=== PATIENT | female | born 1985 | race Two or more races ===

== ENCOUNTER → 2024-01-11 14:23 | Outpatient (REF) | payer BC, SELFPAY ==
[2024-01-11 15:23] LABS: Urine Albumin Negative (Neg - Trace); Urine Bilirubin Negative (Negative); Urine Character Clear (Clear); Urine Color Yellow; Urine Glucose Negative (Negative); Urine Ketone 1+ (Negative); Urine Leukocyte Negative (Negative); Urine Nitrite Negative (Negative); Urine Occult Blood 1+ (Negative); Urine Specific Gravity 1.025 (<1.030); Urine Urobilinogen Negative (Neg - 1+)
[2024-01-11 15:24] LABS: % Basophils 0.5 % (0-2); % Immature Granulocytes 0.3 % (0-0.5); % Lymphocytes 20.2 % (20.5-51.1); % Monocytes 11.2 % (1.7-9.3); % Neutrophils 66.8 % (42.2-75.2); Absolute Eosinophils 0.1 10^3/uL (0-0.7); Absolute Lymphocytes 1.8 10^3/uL (1.2-3.4); Absolute Neutrophils 5.9 10^3/uL (1.4-6.5); Hemoglobin 12.1 g/dL (13.0-18.0); Mean Corp Hgb Conc. 34.6 g/dL (33.0-37.0); Mean Corpuscular Volume 86.6 fL (80.0-94.0); Mean Platelet Volume 9.9 fL (7.4-10.4); Nucleated Red Blood Cells % 0 % (-); Platelet Count 300 10^3/uL (130-400); Red Blood Cell Count 4.04 10^6/uL (4.70-6.10); Red Cell Dist. Width 12.1 % (11.5-14.5); White Blood Cell Count 8.8 10^3/uL (4.8-10.8)
[2024-01-11 16:01] LABS: Urine Mucus Moderate; Urine Squamous Cell >30 /LPF (Few)
[2024-01-11 16:02] LABS: Urine Bacteria Moderate (Negative)
[2024-01-11 16:23] LABS: Hepatitis B Surface Antigen Negative (Negative)
[2024-01-11 16:33] LABS: HIV Combo Negative (Negative)
[2024-01-11 16:40] LABS: Hepatitis C Antibody Negative (Negative)
[2024-01-12 09:25] LABS: Glycohemoglobin (HgbA1c) 5.1 % (4.0-5.6)
[2024-01-13 20:59] LABS: Rubella Positive
== END ==
LOC: REG 14:23
PROVIDERS: ATTENDING PHYSICIAN Nurse Practitioner Family
DX: O09.511 Supervision of elderly primigravida, first trimester (principal)
CPT/HCPCS: 36415; 81003; 81015; 83036; 85025; 86762; 86780; 86803; 86850; 86900; 86901; 87086; 87340; 87389

== ENCOUNTER → 2024-01-11 15:23 | Outpatient (REF) | payer BC, SELFPAY ==
[2024-01-15 07:17] LABS: HPV, High Risk Not Detected; HPV, High Risk Source Cervical
== END ==
LOC: CPAP 15:23
PROVIDERS: ATTENDING PHYSICIAN Nurse Practitioner Family
DX: Z01.419 Encounter for gynecological examination (general) (routine) without abnormal findings (principal); Z11.51 Encounter for screening for human papillomavirus (HPV); Z11.3 Encounter for screening for infections with a predominantly sexual mode of transmission
CPT/HCPCS: 87491; 87591; 87624

== ENCOUNTER → 2024-01-25 12:37 | Outpatient (REF) | payer BC, SELFPAY ==
[2024-01-25 15:20] LABS: Urine Albumin Negative (Neg - Trace); Urine Bilirubin Negative (Negative); Urine Character Clear (Clear); Urine Color Yellow; Urine Glucose Negative (Negative); Urine Ketone 1+ (Negative); Urine Leukocyte Negative (Negative); Urine Nitrite Negative (Negative); Urine Occult Blood Negative (Negative); Urine Specific Gravity 1.025 (<1.030); Urine Urobilinogen Negative (Neg - 1+)
== END ==
LOC: REG 12:37
PROVIDERS: ATTENDING PHYSICIAN Clinical Nurse Specialist Acute Care
DX: R82.90 Unspecified abnormal findings in urine (principal)
CPT/HCPCS: 36415; 81003

== ENCOUNTER → 2024-03-06 13:07 | Outpatient (REF) | payer BC, SELFPAY | LOC: PNTC 13:07 | PROVIDERS: ATTENDING PHYSICIAN Student in an Organized Health Care Education/Training Program | DX: Z34.82 Encounter for supervision of other normal pregnancy, second trimester (principal); Z13.71 Encounter for nonprocreative screening for genetic disease carrier status; Z13.79 Encounter for other screening for genetic and chromosomal anomalies | CPT/HCPCS: 36415 ==

== ENCOUNTER → 2024-04-17 13:23 | Outpatient (REF) | payer BC, SELFPAY | LOC: PNTC 13:23 | PROVIDERS: ATTENDING PHYSICIAN Obstetrics & Gynecology | DX: O09.519 Supervision of elderly primigravida, unspecified trimester (principal) | CPT/HCPCS: 76811 ==

== ENCOUNTER → 2024-05-25 06:52 | Outpatient (REF) | payer BC, SELFPAY ==
[2024-05-25 09:39] LABS: % Basophils 0.4 % (0-2); % Eosinophils 1.1 % (0-6); % Immature Granulocytes 0.8 % (0-0.5); % Lymphocytes 16.5 % (20.5-51.1); % Monocytes 9.2 % (1.7-9.3); Absolute Eosinophils 0.1 10^3/uL (0-0.7); Absolute Immature Granulocytes 0.1 10^3/uL (0-0.05); Absolute Lymphocytes 1.5 10^3/uL (1.2-3.4); Absolute Monocytes 0.9 10^3/uL (0.1-0.6); Absolute Neutrophils 6.6 10^3/uL (1.4-6.5); Hematocrit 33.9 % (37.0-47.0); Hemoglobin 11.2 g/dL (12.0-16.0); Mean Corpuscular Hgb 30.3 pg (27.0-31.0); Mean Corpuscular Volume 91.6 fL (81.0-99.0); Mean Platelet Volume 9.4 fL (7.4-10.4); Nucleated Red Blood Cells % 0 %; Platelet Count 304 10^3/uL (130-400); Red Cell Dist. Width 12.7 % (11.5-14.5); White Blood Cell Count 9.2 10^3/uL (4.8-10.8)
[2024-05-25 09:51] LABS: 1 Hour after 50gm 119 mg/dl
[2024-05-26 13:48] LABS: Syphilis/T. pallidum Ab Reflex Negative (Negative)
== END ==
LOC: REG 06:52
PROVIDERS: ATTENDING PHYSICIAN Obstetrics & Gynecology
DX: Z34.93 Encounter for supervision of normal pregnancy, unspecified, third trimester (principal)
CPT/HCPCS: 36415; 82950; 85025; 86780

== ENCOUNTER → 2024-05-31 15:02 | Outpatient (REF) | payer BC, SELFPAY | LOC: PNTC 15:02 | PROVIDERS: ATTENDING PHYSICIAN Student in an Organized Health Care Education/Training Program | DX: O09.529 Supervision of elderly multigravida, unspecified trimester (principal) | CPT/HCPCS: 76816 ==

== ENCOUNTER → 2024-07-12 14:54 | Outpatient (REF) | payer BC, SELFPAY | LOC: PNTC 14:54 | PROVIDERS: ATTENDING PHYSICIAN Student in an Organized Health Care Education/Training Program | DX: O09.529 Supervision of elderly multigravida, unspecified trimester (principal) | CPT/HCPCS: 76816 ==

== ENCOUNTER → 2024-08-03 15:21 | Outpatient (REF) | payer BC, SELFPAY | LOC: CLAB 15:21 | PROVIDERS: ATTENDING PHYSICIAN Obstetrics & Gynecology | DX: Z36.85 Encounter for antenatal screening for Streptococcus B (principal); Z34.90 Encounter for supervision of normal pregnancy, unspecified, unspecified trimester | CPT/HCPCS: 87070 ==

== ENCOUNTER 2024-08-07 04:43 | Inpatient (IN) | payer BC, SELFPAY ==
[2024-08-07 05:10] VITALS: BP 115/70; BMI 27.5
[2024-08-07 05:18] LABS: % Basophils 0.4 % (0-2); % Eosinophils 1.5 % (0-6); % Lymphocytes 19.1 % (20.5-51.1); Absolute Eosinophils 0.2 10^3/uL (0-0.7); Absolute Immature Granulocytes 0.1 10^3/uL (0-0.05); Absolute Lymphocytes 2.1 10^3/uL (1.2-3.4); Absolute Monocytes 1.2 10^3/uL (0.1-0.6); Absolute Neutrophils 7.4 10^3/uL (1.4-6.5); Hematocrit 33.4 % (37.0-47.0); Hemoglobin 11.6 g/dL (12.0-16.0); Mean Corp Hgb Conc. 34.7 g/dL (33.0-37.0); Mean Corpuscular Volume 86.3 fL (81.0-99.0); Mean Platelet Volume 9.7 fL (7.4-10.4); Nucleated Red Blood Cells % 0 %; Platelet Count 302 10^3/uL (130-400); Red Blood Cell Count 3.87 10^6/uL (4.20-5.40); Red Cell Dist. Width 13.2 % (11.5-14.5)
[2024-08-07] MEDS: CELESTONE SOLUSPAN 2 MG IM (05:52)
[2024-08-07] MEDS: SUBLIMAZE 100 MCG EPIDURAL (05:56)
[2024-08-07] MEDS: FENTANYL/BUPIVACAINE 100 EPIDURAL (05:56)
[2024-08-08 04:46] LABS: Hematocrit 31.3 % (37.0-47.0); Hemoglobin 10.7 g/dL (12.0-16.0)
[2024-08-08 13:20] LABS: Syphilis/T. pallidum Ab Reflex Negative (Negative)
[2024-08-09] MEDS: SENOKOT-S 1 TABLET PO (08:25)
== END 2024-08-09 10:30 | disposition home or self-care (01) | DRG 807 ==
LOC: LDRP 04:43
PROVIDERS: Obstetrics & Gynecology; ADMITTING PHYSICIAN Obstetrics & Gynecology
PROC: 10E0XZZ Delivery of Products of Conception, External Approach (ICD-10-PCS; 2024-08-07)
PROC: 0KQM0ZZ Repair Perineum Muscle, Open Approach (ICD-10-PCS; 2024-08-07)
DX: O60.14X0 Preterm labor third trimester with preterm delivery third trimester, not applicable or unspecified (principal); Z37.0 Single live birth; O76 Abnormality in fetal heart rate and rhythm complicating labor and delivery; O70.1 Second degree perineal laceration during delivery; Z3A.36 36 weeks gestation of pregnancy
CPT/HCPCS: 88307; 36415; 85014; 85018; 85025; 86780; 86850; 86900; 86901